=== PATIENT | female | born 1995 | race Caucasian/White ===

== ENCOUNTER 2019-05-23 18:49 | Emergency (ER) | payer OTHER ==
[~2019-05-23] VITALS: Ht 170.2 cm; Wt 63.2 kg
[2019-05-23 18:57] VITALS: BP 123/84
--- NOTE | 2019-05-23 21:41 | NUR ---
previous night feeling "out of it," went to urgent care in [place] around 1600; feeling tired and lethargic; tingling of fingers. Resolved about 30 minutes ago EXAM UNREMARKABLE. REPORTS FEELING STRESSED/DEPRESSED LATELY (NO SI). HAS PCP WITH WHOM SHE CAN F/U WITH
[2019-05-23 22:21] LABS: BASOPHILS # (AUTO) 0.02 x10^3/uL (0-0.1); BASOPHILS % (AUTO) 1 % (0-1); EOSINOPHILS # (AUTO) 0.11 x10^3/uL (0-0.4); EOSINOPHILS % (AUTO) 3 % (1-7); LYMPHOCYTES # (AUTO) 1.72 x10^3/uL (1-3.4); LYMPHOCYTES % (AUTO) 40 % (22-44); MD NO; MEAN CORPUSCULAR HEMOGLOBIN 31.8 pg (27.0-34.8); MEAN CORPUSCULAR VOLUME 93.5 fL (80-100); MEAN PLATELET VOLUME 8.1 fL (7.4-10.4); MONOCYTES # (AUTO) 0.36 x10^3/uL (0.2-0.8); MONOCYTES % (AUTO) 8 % (2-9); NEUTROPHILS # (AUTO) 2.14 x10^3/uL (1.8-6.8); NEUTROPHILS % (AUTO) 49 % (42-75); PLATELET COUNT 284 x10^3/uL (130-400); RED BLOOD COUNT 4.41 x10^6/uL (3.82-5.3); RED CELL DISTRIBUTION WIDTH 12.9 % (9.6-15.2)
[2019-05-23 22:33] LABS: ALBUMIN 3.6 g/dL (3.4-5.0); ANION GAP 5 mmol/L (5-15); CHLORIDE 107 mmol/L (98-107); CREATININE 0.83 mg/dL (0.55-1.02)
== END 2019-05-24 00:02 | disposition home or self-care (01) ==
LOC: ED 22:25
DX: R20.9 Unspecified disturbances of skin sensation (principal)
CPT/HCPCS: 36415; 80048; 82040; 84443; 84703; 85025; 93005; 99284